=== PATIENT | male | born 1995 | race Two or more races ===

== ENCOUNTER 2018-06-07 23:10 | Emergency (ER) | payer SELFPAY ==
[~2018-06-07] VITALS: Ht 165.1 cm; Wt 59.0 kg
[2018-06-07 23:35] VITALS: BP 134/81
--- NOTE | 2018-06-08 01:49 | NUR ---
PT NOT IN LOBBY OR OUTSIDE ER AFTER TALKING TO THE CONFERENCE TRANSLATOR. INFORMED BY ADMITTING "PT LEFT"
== END 2018-06-08 01:51 | disposition left against medical advice (07) ==
LOC: ER 23:12
DX: Z53.21 Procedure and treatment not carried out due to patient leaving prior to being seen by health care provider (principal)
CPT/HCPCS: A4606; Z7610

== ENCOUNTER 2019-06-24 22:34 | Emergency (ER) | payer OTHER ==
[~2019-06-24] VITALS: Ht 167.6 cm; Wt 68.0 kg
[2019-06-24 22:45] VITALS: BP 132/73
== END 2019-06-24 23:25 | disposition home or self-care (01) ==
LOC: ER 22:35
DX: S00.36XA Insect bite (nonvenomous) of nose, initial encounter (principal); W57.XXXA Bitten or stung by nonvenomous insect and other nonvenomous arthropods, initial encounter; Y93.89 Activity, other specified; Y92.89 Other specified places as the place of occurrence of the external cause; Y99.8 Other external cause status